=== PATIENT | male | born 1955 | race Caucasian/White ===

== ENCOUNTER 2017-03-02 07:56 | Day surgery (SDC) | payer BC ==
[~2017-03-02 07:56] MED LIST: IODIXANOL 320MG/ML 100ML BTL IV ONE; LIDOCAINE 2%HCL (LOCAL ANESTH.) INJ 20ML MDV ONE
[2017-03-02] MEDS ORDERED: MIDAZOLAM HCL 1MG/1ML-2 ML VIAL ONE (08:27)
[2017-03-02] MEDS ORDERED: VERAPAMIL 2.5MG/ML INJ 2ML VIAL IV ONE (08:28)
[2017-03-02] MEDS ORDERED: fentaNYL CITRATE 100 MCG/2 ML VL ONE (08:28)
[2017-03-02] MEDS ORDERED: EPTIFIBATIDE INJ (2MG/ML) 10ML VIAL IV ONE (08:29)
[2017-03-02] MEDS ORDERED: SODIUM CHL 0.9% 0 ML ONE (08:29)
[2017-03-02] MEDS ORDERED: ANGIOMAX 250 MG VIAL IV ONE (08:29)
[2017-03-02] MEDS ORDERED: HEPARIN SODIUM (PORCINE) 5000 UNITS/ML 1ML VIAL ONE (09:13)
== END 2017-03-02 12:15 | disposition home or self-care (01) ==
LOC: CATH 07:56
PROVIDERS: ATTEND Internal Medicine
DX: I21.4 Non-ST elevation (NSTEMI) myocardial infarction (principal)
CPT/HCPCS: 93458; C1760; C1769; J1644; J2250; J3010; J7030; Q9967; 99152